=== PATIENT | male | born 2000 | race Two or more races ===

== ENCOUNTER 2021-01-26 14:50 | Emergency (ER) | payer SELFPAY ==
[~2021-01-26] VITALS: Ht 177.8 cm; Wt 85.0 kg
[2021-01-26] MEDS ORDERED: NEOMY/BACITR/POLYMYXIN OINT PACKET. TP ONE (15:15)
[2021-01-26] MEDS ORDERED: BUPIVACAINE MPF 0.5% 30 ML VIAL. INJ ONE (15:15)
--- NOTE | 2021-01-26 15:37 | RAD ---
INDICATION: Reason: saw to left 4th digit / Spl. Instructions: / History: COMPARISON: None. IMPRESSION: Left fourth digit of hand. 3 views obtained. Soft tissue laceration is seen at the fourth digit witho ut a definite acute fracture line or dislocation. Electronically signed by: Scott Laurent MD (01/26/2021 3:34 PM) [id number]
--- NOTE | 2021-01-26 16:18 | PHYS DOC ---
Past Medical History Past Medical History: No Pertinent History Past Surgical History: No Surgical History Smoking Status: Never Smoker Alcohol Use: None General Adult EDM: Chief Complaint: TRAUMA ALERT HPI: HPI: 20-year-old male male who denies any significant past medical history presents to the ED immediately after patient accidentally cut his left ring finger (nondominant hand) on a metal wood saw (was spinning and while holding the wood, cut his left 4th digit when he lost control of the wood. Is emotional stating he grew up building homes since 13yo, and now has injured himself building his own home. Vaccines are up-to-date including tetanus. Does not believe any wood particles got into the fracture. Review of Systems: Review of Systems: Constitutional: Denies fever or chills. [] Eyes: Denies change in visual acuity. [] HENT: Denies nasal congestion or sore throat. [] Respiratory: Denies cough or shortness of breath. [] Cardiovascular: Denies chest pain or edema. [] GI: Denies abdominal pain, nausea, vomiting, bloody stools or diarrhea. [] : Denies dysuria. [] Musculoskeletal: Denies back pain or CVA tenderness Integument: Denies rash. [] Neurologic: Denies headache, focal weakness or sensory changes. [] Endocrine: Denies polyuria or polydipsia. [] Lymphatic: Denies swollen glands. [] Psychiatric: Denies depression or anxiety. [] Heart Score: C/O Chest Pain: No Risk Factors: Risk Factors: DM, Current or recent (<one month) smoker, HTN, HLP, family hi story of CAD, obesity. Risk Scores: Score 0 - 3: 2.5% MACE over next 6 weeks - Discharge Home Score 4 - 6: 20.3% MACE over next 6 weeks - Admit for Clinical Observation Score 7 - 10: 72.7% MACE over next 6 weeks - Early Invasive Strategies Current Medications: Current Medications Medications (Trade) Dose Ordered Sig/Gabriella Start Time Stop Time Status Last Admin Dose Admin Bupivacaine HCl (Sensorcaine Mpf 0.5%) 30 ml 1X ONCE 01/26/21 15:15 01/26/21 15:16 DC 01/26/21 15:31 30 ML Cefazolin Sodium/ Dextrose 50 ml @ 100 mls/hr 1X ONCE 3/17/21 15:15 01/26/21 15:44 DC 01/26/21 15:32 100 MLS/HR Neomycin/ Polymyxin/ Bacitracin (Triple Antibiotic Ointment) 1 pkt 1X ONCE 01/26/21 15:15 01/26/21 15:16 DC 01/26/21 15:31 1 PKT Allergies: Allergies: Allergies Coded Allergies Type Severity Reaction Last Updated Verified No Known Drug Allergies 01/26/21 No Physical Exam: PE: Constitutional: Well developed, well nourished, no acute distress, non-toxic appearance. HENT: Normocephalic, atraumatic, Eyes: EOMI, conjunctiva normal, no discharge. Neck: Normal range of motion, supple, Cardiovascular: S1/2 present, regular rhythm Lungs & Thorax: Speaking in full sentences, bilateral equal chest rise, no tachypnea or increased work of breathing Skin: Warm, dry, no erythema, no rash. [] Extremities: No cyanosis, laceration involves distal ventral left fourth phalanx and curves around to medial edge of nail with some involvement, laceration extends superiorly just past DIP joint, no exposed bone, only soft tissue/some macerated skin/areas w/no epidermis, is able to flex and extend at left fourth MCP/PIP/DIP joint, wedding ring present on injured finger and ring was immediately removed by myself upon arrival in trauma bay-placed on right index finger with patient's consent, cap refill < 1 second, no subungual hematoma, no nail involvement of laceration Neurologic: Alert and oriented X 3, normal motor function, normal sensory function, no focal deficits noted. [] Psychologic: Affect normal, judgement normal, mood normal. [] Current Patient Data: Vital Signs: Vital Signs Date Time Temp Pulse Resp B/P (MAP) Pulse Ox O2 Delivery O2 Flow Rate FiO2 01/26/21 14:50 98.4 117 22 152/96 (114) 99 Room Air 98.4 EKG: EKG: [] Radiology/Procedures: Radiology/Procedures: IMAGING REPORT Signed PATIENT: MAXI AKHTAR ACCOUNT: [id number] : 2000 LOCATION: ER AGE: 20 SEX: M EXAM STATUS: PRE ER ORD. PHYSICIAN: ALLEGRA SAHU DO REASON: saw to left 4th digit PROCEDURE: FINGER(S) RIGHT INDICATION: Reason: saw to left 4th digit / Spl. Instructions: / History: COMPARISON: None. IMPRESSION: Left fourth digit of hand. 3 views obtained. Soft tissue laceration is seen at the fourth digit without a definite acute fracture line or dislocation. Electronically signed by: Nikolas Weeks MD (01/26/2021 3:34 PM) [id number] DICTATED and SIGNED BY: NIKOLAS WEEKS MD DATE: 01/26/21 [id number] 0 Indication: Left distal index finger laceration Procedure: The patient was placed in the appropriate position and anesthesia around the left fourth digit, digital block performed with 0.5% ropivacaine. The area was then copiously irrigated. The laceration was closed with 4-0 nylon, total of 8 sutures. The wound area was then dressed with triple antibiotic ointment and sterile dressings. Total repaired wound length: Approximately 3 cm. Other Items: Areas of the dorsal aspect of the finger with no overlying epidermis The patient tolerated the procedure . Complications: None, patient with full extension and flexion of her left DIP joint before and after laceration repair Course & Med Decision Making: Course & Med Decision Making Pertinent Labs and Imaging studies reviewed. (See chart for details) Distal phalanx laceration of nondominant hand, does not appear to involve extensor tendon. Patient was educated regarding tendon injuries decreased range of motion requiring urgent hand surgery follow-up within 7 days. Wound care instructions given including antibiotics. Recommend wound care follow-up in 2 to 3 days. Will discharge home with strict ED return precautions were given for worsening finger pain, rash, redness, swelling and purulent drainage. Encouraged urgent outpatient follow-up with PMD and hand surgery. Life- threatening processes were considered but are low suspicion at this time, given history, physical exam and ED workup. Pt was educated on all prescription medications and adverse effects. All patient's questions were answered and pt was stable at time of discharge. Life/limb-threatening differential includes but is not limited to, trauma (fracture, dislocation, laceration, compartment syndrome, tendon or ligament injury), neurovascular injury or deficit, infection (osteomyelitis, abscess, cellulitis, septic arthritis, necrotizing fasciitis), deep vein thrombosis, renal/cardiac/liver disease, medication adverse effect, lymphedema/anasarca, vascular insufficiency or malignancy, I spoken with the patient and her caregivers. I explained the patient's condition, diagnoses and treatment plan based on the information available to me at this time. I have answered the patient and her caregiver's questions and addressed any concerns. The patient and her caregivers have a good understanding of patient's diagnosis, condition and treatment plan as can be expected at this point. Vital signs have been stable. Patient's condition is stable and appropriate for discharge from the emergency department. Patient will pursue further outpatient evaluation with primary care physician or other designated or consulting physician as outlined in the discharge instructions. The patient and/or caregivers are agreeable to this plan of care and follow-up instructions have been explained in detail. The patient and/or caregivers have received these instructions in written form and have expressed an understanding of the discharge instructions. The patient and/or caregivers are aware that any significant change of condition or worsening of symptoms should prompt immediate return to this or the closest emergency department or ne ll to 911. Nikko Disclaimer: Nikko Disclaimer: This electronic medical record was generated, in whole or in part, using a voice recognition dictation system. Departure Departure Impression: Primary Impression: Finger laceration Disposition: 01 DC HOME SELF CARE/HOMELESS Condition: STABLE Referrals: NO PCP (PCP) Wound care follow-up in 2 to 3 days FOLLOW UP WITH FAMILY MEDICINE: Family Medicine Address: [address] [place] [address] Patient Instructions: Fingertip Laceration, Laceration Care, Adult Additional Instructions: [facility] Appointments may be made with Dav Piper MD, Wellington Valdes MD, Young Weinstein MD or Brett Abraham MD, by calling [phone] EMERGENCY DEPARTMENT GENERAL DISCHARGE INSTRUCTIONS Thank you for coming to [facility] Emergency Department (ED) today and trusting us with you care. We trust that you had a positive experience in our Emergency Department. If you wish to speak to the department management, you may call the Director at [phone]. YOUR FOLLOW UP INSTRUCTIONS ARE FOLLOWS: 1. Do you have a private Doctor? If you do not have a private doctor, please ask for a resource list of physicians or clinics that may be able to assist you with follow up care. 2. The Emergency Physicain has interpreted your x-rays. The X-Ray specialist will also review them. If there is a change in the findings, you will be notified in 48 hours when at all possible. 3. A lab test or culture has been done, your results will be reviewed and you will be notified if you need a change in treatment. ADDITIONAL INSTRUCTIONS AND INFORMATION: 1. Your care today has been supervised by a physician who is specially trained in emergency care. Many problems require more than one evaluation for a complete diagnosis and treatment. We recommend that you schedule your follow up appointment as recommended to ensure complete treatment of you illness or injury. If you are unable to obtain follow up care and continue to have a problem, or if your condition worsens, we recommend that you return to the ED. 2. We are not able to safely determine your condition over the phone nor are we able to give sound medical advice over the phone. For these safety reasons, if you call for medical advice we will ask you to come to the ED for further evaluation. 3. If you have any questions regarding these discharge instructions please call the ED at [phone]. SAFETY INFORMATION: In the interest of safety, wellness, and injury prevention; we encourage you to wear your sealbelt, if you smoke; quite smoking, and we encourage family to use a pr otective helmet for bicycling and other sporting events that present an increased risk for head injury. IF YOUR SYMPTOMS WORSEN OR NEW SYMPTOMS DEVELOP, OR YOU HAVE CONCERNS ABOUT YOUR CONDITION; OR IF YOUR CONDITION WORSENS WHILE YOU ARE WAITING FOR YOUR FOLLOW UP APPOINTMENT; EITHER CONTACT YOUR PRIMARY CARE DOCTOR, THE PHYSICIAN WHOSE NAME AND NUMBER YOU WERE GIVEN, OR RETURN TO THE ED IMMEDIATELY. Scripts Sulfamethoxazole/Trimethoprim (BACTRIM DS TABLET) 1 Each Tablet 1 TAB PO BID for infection for 10 Days, #20 TAB Prov: ALLEGRA SAHU DO 01/26/21 Cephalexin (CEPHALEXIN) 500 Mg Capsule 1 CAP PO BID for 10 Days, #20 CAP Prov: ALLEGRA SAHU DO 01/26/21 ALLEGRA SAHU DO Jan 26, 2021 16:18
[2021-01-26] MEDS ORDERED: CEPH500C PO (18:22)
[2021-01-26] MEDS ORDERED: SULF1TAB24 PO (18:29)
[2021-01-26 18:50] VITALS: BP 116/59
== END 2021-01-26 18:54 | disposition home or self-care (01) ==
LOC: ER 14:50
DX: S61.211A Laceration without foreign body of left index finger without damage to nail, initial encounter (principal); Y28.8XXA Contact with other sharp object, undetermined intent, initial encounter; Y93.89 Activity, other specified; Y92.89 Other specified places as the place of occurrence of the external cause; Y99.8 Other external cause status
CPT/HCPCS: 12002; 73140; 96365; 99285; J0690; J3490